=== PATIENT | male | born 1970 | race Caucasian/White ===

== ENCOUNTER 2019-04-20 17:54 | Emergency (ER) | payer MEDICARE ==
[~2019-04-20] VITALS: Ht 180.3 cm; Wt 99.3 kg
[~2019-04-20 17:54] MED LIST: AMOXICILLIN500 MG PO; ATARAX25 MG PO; BACTROBAN CREAM15 GM PO; CELEXA10 MG PO; CLARITIN10 MG PO; CLINDAMYCIN HC300 MG PO; FLOMAX0.4 MG PO; KLOR-CON20 MEQ PO; LOPRESSOR25 MG PO; NEURONTIN100 MG PO; NEURONTIN400 MG PO; RESTORIL30 MG PO; SPIRIVA18 MCG PO; VICODIN ES 7501 TAB PO; Vicodin 5/500 505 MG PO
== END 2019-04-20 18:37 | disposition home or self-care (01) ==
LOC: ED 17:54
DX: K46.9 Unspecified abdominal hernia without obstruction or gangrene (principal); F17.200 Nicotine dependence, unspecified, uncomplicated; Z79.899 Other long term (current) drug therapy

== ENCOUNTER → 2019-12-26 | Outpatient (CLI) | payer MEDICARE ==
[~2019-12-26] MED LIST changes: +INDOCIN50 M2 PO; +NORCO 10-325 T1 EACH PO
== END | disposition home or self-care (01) ==
LOC: LAB 15:46
DX: J43.9 Emphysema, unspecified (principal); M25.461 Effusion, right knee; M77.9 Enthesopathy, unspecified

== ENCOUNTER 2019-12-28 07:22 | Emergency (ER) | payer MEDICARE ==
[~2019-12-28] VITALS: Ht 180.3 cm; Wt 98.0 kg
[~2019-12-28 07:22] MED LIST changes: -INDOCIN50 M2 PO; -NORCO 10-325 T1 EACH PO
[2019-12-28] MEDS ORDERED: INDOCIN50 M2 PO (08:01)
[2019-12-28] MEDS ORDERED: NORCO 10-325 T1 EACH PO (08:01)
== END 2019-12-28 08:04 | disposition home or self-care (01) ==
LOC: ED 07:22
DX: M10.9 Gout, unspecified (principal); F32.9 Major depressive disorder, single episode, unspecified; F17.200 Nicotine dependence, unspecified, uncomplicated; Z79.899 Other long term (current) drug therapy

== ENCOUNTER 2021-05-13 06:10 | Emergency (ER) | payer MEDICARE ==
[~2021-05-13] VITALS: Ht 180.3 cm; Wt 96.2 kg
[~2021-05-13 06:10] MED LIST changes: +INDOCIN50 M2 PO; +NORCO 10-325 T1 EACH PO
[2021-05-13 07:09] LABS: BASO # 0.1 10*3/uL (0.0-0.1); BASO % 0.4 % (0.0-1.0); EOS # 0.1 10*3/uL (0.0-0.4); HEMATOCRIT 42.4 % (42.0-52.0); LYMPH # 0.9 10*3/uL (1.3-4.4); LYMPH % 7.7 % (27.0-41.0); MEAN CELL VOLUME 91.2 fl (80.0-94.0); MEAN CORPUSCULAR HGB 30.5 pg (27.0-31.0); MEAN CORPUSCULAR HGB CONC 33.5 g/dl (33.0-37.0); MEAN PLATELET VOLUME 10.1 fl (9.6-12.3); MONO # 1.2 10*3/uL (0.1-1.0); NEUT # 9.4 10*3/uL (2.3-7.9); NEUT % 80.6 % (47.0-73.0); PLATELET COUNT AUTOMATED 196 10*3/uL (130-400); RED BLOOD COUNT 4.65 10*6/uL (4.50-5.90); RED CELL DISTRI WIDTH 12.4 % (0-14.5); WHITE BLOOD COUNT 11.7 10*3/uL (4.8-10.8)
[2021-05-13 07:23] LABS: ALKALINE PHOSPHATASE 83 U/L (45-117); BUN 8 mg/dl (7-24); CHLORIDE 102 mmol/L (98-107); CREATININE 1.01 mg/dL (0.70-1.30); POTASSIUM 3.6 mmol/L (3.5-5.1); SGOT/AST 24 IU/L (3-35); SGPT/ALT 42 U/L (12-78); SODIUM 133 mmol/L (136-145); TOTAL PROTEIN 7.8 gm/dL (6.4-8.2)
[2021-05-13] MEDS ORDERED: PREDNISONE50 MG PO (08:13)
[2021-05-13] MEDS ORDERED: ZITHROMAX250 MG PO (08:13)
[2021-05-13] MEDS ORDERED: PHENERGAN25 M3 PO (08:13)
== END 2021-05-13 08:21 | disposition home or self-care (01) ==
LOC: ED 06:10
PROVIDERS: Internal Medicine
DX: J20.9 Acute bronchitis, unspecified (principal); F17.200 Nicotine dependence, unspecified, uncomplicated; Z79.899 Other long term (current) drug therapy

== ENCOUNTER → 2021-08-07 | Outpatient (CLI) | payer MEDICARE ==
[~2021-08-07] MED LIST changes: +PHENERGAN25 M3 PO; +PREDNISONE50 MG PO; +ZITHROMAX250 MG PO
== END | disposition home or self-care (01) ==
LOC: RAD 10:17
PROVIDERS: ATTEND Nurse Practitioner Family
DX: R05.9 Cough, unspecified (principal); R06.2 Wheezing; R06.02 Shortness of breath

== ENCOUNTER → 2022-08-04 | Outpatient (CLI) | payer MEDICARE ==
[2022-08-04 10:52] LABS: BASO # 0.1 10*3/uL (0.0-0.1); BASO % 0.9 % (0.0-1.0); EOS # 0.3 10*3/uL (0.0-0.4); EOS % 2.5 % (1.0-4.0); HEMATOCRIT 48.8 % (42.0-52.0); LYMPH % 30.7 % (27.0-41.0); MEAN CELL VOLUME 93.1 fl (80.0-94.0); MEAN CORPUSCULAR HGB CONC 32.2 g/dl (33.0-37.0); MEAN PLATELET VOLUME 9.7 fl (9.6-12.3); MONO # 0.9 10*3/uL (0.1-1.0); NEUT # 5.5 10*3/uL (2.3-7.9); NEUT % 56.4 % (47.0-73.0); PLATELET COUNT AUTOMATED 258 10*3/uL (130-400); RED BLOOD COUNT 5.24 10*6/uL (4.50-5.90); RED CELL DISTRI WIDTH 12.7 % (0-14.5); WHITE BLOOD COUNT 9.8 10*3/uL (4.8-10.8)
[2022-08-04 11:08] LABS: ALKALINE PHOSPHATASE 76 U/L (46-116); BUN 12 mg/dl (9-23); CHLORIDE 102 mmol/L (98-107); CHOLESTEROL 178 mg/dL (<200); LDL CHOLESTEROL 68 mg/dL (9-159); POTASSIUM 4.6 mmol/L (3.4-5.1); SGPT/ALT 79 U/L (10-49); TOTAL PROTEIN 7.6 gm/dL (6.0-8.0); TRIGLYCERIDES 344 mg/dl (<150); URIC ACID 5.6 mg/dL (3.7-9.2)
[2022-08-05 10:07] LABS: CREATININE,URINE 120.1 mg/dL (Not Estab.)
== END | disposition home or self-care (01) ==
LOC: LAB 10:31
PROVIDERS: ATTEND Nurse Practitioner Family
DX: E11.9 Type 2 diabetes mellitus without complications (principal); E78.1 Pure hyperglyceridemia; E78.49 Other hyperlipidemia; I10 Essential (primary) hypertension; M10.9 Gout, unspecified

== ENCOUNTER → 2022-11-17 | Outpatient (CLI) | payer MEDICARE ==
[2022-11-17 10:30] LABS: URINE CREATININE RANDOM 91.86 mg/dL
== END | disposition home or self-care (01) ==
LOC: LAB 09:56
PROVIDERS: ATTEND Nurse Practitioner Family
DX: E11.9 Type 2 diabetes mellitus without complications (principal); M10.9 Gout, unspecified